=== PATIENT | female | born 1960 | race Caucasian/White ===

== ENCOUNTER → 2023-12-10 19:13 | Outpatient (REF) | payer BC, SELFPAY | LOC: MRI 3T 19:13 | PROVIDERS: ATTENDING PHYSICIAN Orthopaedic Surgery Hand Surgery; FAMILY PHYSICIAN Internal Medicine | DX: M25.511 Pain in right shoulder (principal); R22.31 Localized swelling, mass and lump, right upper limb | CPT/HCPCS: 73218 ==

== ENCOUNTER 2024-01-18 06:14 | Day surgery (SDC) | payer BC, SELFPAY ==
[2024-01-14 08:38] LABS: Hematocrit 38.6 % (37.0-47.0); Hemoglobin 13.1 g/dL (12.0-16.0); Mean Corp Hgb Conc. 33.9 g/dL (33.0-37.0); Mean Corpuscular Hgb 30.1 pg (27.0-31.0); Mean Corpuscular Volume 88.7 fL (81.0-99.0); Mean Platelet Volume 9.8 fL (7.4-10.4); Platelet Count 300 10^3/uL (130-400); Red Blood Cell Count 4.35 10^6/uL (4.20-5.40); White Blood Cell Count 9.5 10^3/uL (4.8-10.8)
[2024-01-14 13:26] VITALS: BMI 24.9
[2024-01-18] VITALS (9 sets, daily range): BP systolic 101–120; BP diastolic 53–72; BMI 24.9
[2024-01-18] MEDS: CELEBREX 200 MG PO (07:27)
[2024-01-18] MEDS: TYLENOL 1000 MG PO (07:28)
[2024-01-18] MEDS: NORMOSOL-R 1000 IV (07:28)
== END 2024-01-18 12:45 | disposition home or self-care (01) ==
LOC: SDS 06:14
PROVIDERS: ATTENDING PHYSICIAN Orthopaedic Surgery Hand Surgery; FAMILY PHYSICIAN Internal Medicine
DX: M75.101 Unspecified rotator cuff tear or rupture of right shoulder, not specified as traumatic (principal); M13.811 Other specified arthritis, right shoulder; M75.41 Impingement syndrome of right shoulder
CPT/HCPCS: 29827; 29828; 36415; 85027; 93005; C1713; C1776

== ENCOUNTER → 2024-11-06 12:02 | Outpatient (REF) | payer BC, SELFPAY | LOC: RAD 12:02 | PROVIDERS: ATTENDING PHYSICIAN Nurse Practitioner Adult Health | DX: M25.552 Pain in left hip (principal) | CPT/HCPCS: 73502 ==

== ENCOUNTER → 2024-11-17 07:09 | Outpatient (REF) | payer BC, SELFPAY | LOC: WDC 07:09 | PROVIDERS: ATTENDING PHYSICIAN Obstetrics & Gynecology Gynecology | DX: Z12.31 Encounter for screening mammogram for malignant neoplasm of breast (principal) | CPT/HCPCS: 77063; 77067 ==

== ENCOUNTER 2025-03-09 06:15 | Day surgery (SDC) | payer BC, SELFPAY | END 2025-03-09 08:32 | disposition home or self-care (01) | LOC: GI 06:15 | PROVIDERS: ATTENDING PHYSICIAN Internal Medicine Gastroenterology | DX: Z12.11 Encounter for screening for malignant neoplasm of colon (principal); K64.8 Other hemorrhoids; K57.30 Diverticulosis of large intestine without perforation or abscess without bleeding; D12.3 Benign neoplasm of transverse colon; D12.2 Benign neoplasm of ascending colon; K62.1 Rectal polyp; Z86.0100 Personal history of colon polyps, unspecified | CPT/HCPCS: 45380; 88305 ==